=== PATIENT | female | born 1940 | race Caucasian/White ===

== ENCOUNTER 2016-08-17 12:23 | Outpatient (CLI) | payer OTHER ==
--- NOTE | 2016-08-17 15:46 | DIAGNOSTIC IMAGING REPORT ---
PROCEDURE: MR UPPER EXTREMITY W/O CONT-RT; FAILED EXAM INDICATION: RIGHT SHOULDER PAIN FINDINGS: Extensive motion artifacts. IMPRESSION: 1. Inconclusive exam secondary to excessive motion. Recommend repeat scan with adequate sedation.
== END 2016-08-17 23:00 ==
LOC: MRI SRH 12:23
DX: S43.014D Anterior dislocation of right humerus, subsequent encounter (principal)

== ENCOUNTER 2016-08-19 09:33 | Outpatient (CLI) | payer OTHER ==
--- NOTE | 2016-08-19 14:05 | DIAGNOSTIC IMAGING REPORT ---
PROCEDURE: MR UPPER EXTREMITY W/O CONT-RT INDICATION: Right shoulder pain. TECHNIQUE: Completion coronal proton density fat sat and sagittal STIR sequences. COMPARISON: Right shoulder MRI 08/17/2016. FINDINGS: Moderate AC joint degenerative changes with caudal angulation of the type 2 acromion resulting in impingement. Diffuse increased T2 signal of the supraspinatus tendon suggestive of partial thickness tear on the articular side with possible delamination. Also suspect an insertional tear of the supraspinatus anteriorly, likely full-thickness, given the small subcoracoid bursal effusion. Small subdeltoid and sub acromial bursal effusions. Normal glenoid labrum as visualized. Normal positioning of the bicipital tendon with tendinosis of the long head. Normal glenohumeral ligaments. No suspicious osseous lesions. IMPRESSION: 1. Impingement secondary to AC joint degenerative changes and caudal angulation of type 2 acromion 2. Suspect full-thickness insertional tear of the supraspinatus tendon anteriorly, associated with subdeltoid and subcoracoid bursal effusions. There is also partial thickness tear of the midportion of the supraspinatus tendon on the articular side with possible delamination. 3. Bicipital tendinosis
== END 2016-08-19 23:00 ==
LOC: MRI SRH 09:33
DX: M75.21 Bicipital tendinitis, right shoulder (principal); M25.811 Other specified joint disorders, right shoulder; M75.51 Bursitis of right shoulder